=== PATIENT | female | born 1970 | race Caucasian/White ===

== ENCOUNTER 2020-05-19 06:07 | Day surgery (SDC) | payer BC ==
[~2020-05-19] VITALS: Ht 170.2 cm; Wt 93.9 kg
[~2020-05-19 06:07] MED LIST: ALLER-TEC PO; FLONASE ALLERG9.9 M2; LOSA50 PO
--- NOTE | 2020-05-19 07:03 | NUR ---
History, Chart, Medications and Allergies reviewed before start of procedure. Lungs clear T/O to Auscultation.F Patient confirms NPO status and agrees with scheduled surgery. Pre-Op teaching done. Pt verbalizes understanding. Patient reports completing Chlorhexadine shower X2 prior to admission to hospital.
--- NOTE | 2020-05-19 11:57 | NUR ---
PACU ARRIVAL AT 1105 PT A0X4. PLEASANT. REPORTS PAIN 5/10. MEDIATED WITH 0.5MG DILAUDID. PT FELT NAUSEATED AFTER, MEDICATED W/ 4MG ZOFRAN. PT WAS PALE, DENIES CP/PRESSURE. 4 ABD LAP SURGICAL SITE WITH STERI STRIP, CDI. PERIPAD PRESENT WITH SCANT BLEED. PT DENIES NUMBNESS AND TINLGING. PT ABLE TO WIGGLE TOES AND LOWER EXTREMITIES. IV ON R FOREARM PRESENT, PATENT AND INFUSING WITH LR. ROBERTS CATH INTACT WITH CLEAR URINE. CALL LIGHT W/IN REACH. REORIENT PT IN ROOM.
--- NOTE | 2020-05-19 15:40 | NUR ---
PT VOMITED ABOUT 150ML WHILE IN THE BATHROOM. PT REPORTS FEELING RELIEF AFTER VOMITING. DENIES FEELING NAUSEATED AFTER. PT UP IN ROOM AND WALKING IN THE HALLWAY. VOIDED 200ML IN THE BATHROOM. BLADDER SCANNED WITH 19ML PVR. PAIN IS MINIMAL. 2/10 PAIN LEVEL. CAME IN TO [facility] HER PRESCRIPTIONS SO HE CAN FILL IT TO THE PHARMACY.
[2020-05-19] MEDS ORDERED: ACET500 PO (15:44)
[2020-05-19] MEDS ORDERED: DOCU100 PO (15:45)
[2020-05-19] MEDS ORDERED: OXAYDO5 M1 PO (15:46)
[2020-05-19] MEDS ORDERED: IBUP600 PO (15:46)
--- NOTE | 2020-05-19 16:36 | NUR ---
PT DCD AT 1636, WALKED INDEPENDENTLY IN PT'S ENTRANCE, WAITING FOR HER. PT IS ALERT AND ORIENTED. REPORTS VERY MINIMAL PAIN. SCANT VAG BLEED ON PERIPAD. IV ON RIGHT FOREARM WAS DC'D, CATH INTACT. PT DENIED TAKING SCHEDULED TYLENOL AT 1600. ROBERTS WAS DC'D WHEN THE PT CAME IN THE UNIT AND VOIDED 200ML, PVR AND BLADDER SCANNED AT 19ML. PT ALSO DENIES SOB, CHEST PAIN AND DIZZINESS. DISCHARGE INSTRUCTION WERE DISCUSSED AND PAPERWORK WAS GIVEN TO PT. PT WILL F/U WITH DR. CASE AND WILL REPORT ANY S/SX OF INFECTION.
== END 2020-05-19 16:35 | disposition home or self-care (01) ==
LOC: ORSCMMR 06:07 → SURS 11:07
PROVIDERS: Obstetrics & Gynecology
PROC: 0UT9FZZ Resection of Uterus, Via Natural or Artificial Opening With Percutaneous Endoscopic Assistance (ICD-10-PCS; principal; 2020-05-19 07:30)
PROC: 0UT0FZZ Resection of Right Ovary, Via Natural or Artificial Opening With Percutaneous Endoscopic Assistance (ICD-10-PCS; principal; 2020-05-19 07:30)
PROC: 0UT7FZZ Resection of Bilateral Fallopian Tubes, Via Natural or Artificial Opening With Percutaneous Endoscopic Assistance (ICD-10-PCS; principal; 2020-05-19 07:30)
DX: D25.9 Leiomyoma of uterus, unspecified (principal); N92.0 Excessive and frequent menstruation with regular cycle; N83.11 Corpus luteum cyst of right ovary; I10 Essential (primary) hypertension; Z79.899 Other long term (current) drug therapy; E66.9 Obesity, unspecified; Z68.32 Body mass index [BMI] 32.0-32.9, adult
CPT/HCPCS: 88307; A9270; J0171; J0330; J0690; J1170; J1885; J2250; J2370; J2405; J2704; J2710; J3010; J7120